=== PATIENT | female | born 1930 | race Caucasian/White ===

== ENCOUNTER 2017-06-22 13:24 | Inpatient (IN) | payer MEDICARE ==
[~2017-06-22] VITALS: Ht 144.8 cm; Wt 60.8 kg
[~2017-06-22 13:24] MED LIST: ASPI81 PO; ATEN-100 PO; CALC600T34 PO; CIPR500T4 PO; COZA100T PO; GABA300C3 PO; HYDR12.56 PO; LEVO50TA51 PO; OMEG100037 PO; OMEP20TA PO; ROSU5 PO; TAB-TAB PO; VITA100017 PO; ZOLE5P IV; [UNRECOGNIZED DRUG - CODE] IV; [UNRECOGNIZED DRUG - CODE] PO
[2017-06-22 13:29] VITALS: BP 158/69; PULSE 77; RESP 14; TEMP 97.8; O2SAT 95
[2017-06-22 13:40] VITALS: BP 136/92; PULSE 65; RESP 15; TEMP 98.7; O2SAT 97
[2017-06-22] MEDS ORDERED: ASCO500T PO (13:56)
[2017-06-22] MEDS ORDERED: TRAS150V (13:56)
[2017-06-22] MEDS ORDERED: OMEP20TA93 PO (13:59)
[2017-06-22] MEDS ORDERED: LEVO50TA4 PO (13:59)
[2017-06-22] MEDS ORDERED: LOSA100T PO (13:59)
[2017-06-22] MEDS ORDERED: CALC1TAB87 PO (13:59)
[2017-06-22] MEDS ORDERED: ROSU1TAB4 PO (13:59)
[2017-06-22] MEDS ORDERED: ATEN25TA PO (13:59)
[2017-06-22] MEDS ORDERED: MULTTAB67 PO (13:59)
[2017-06-22] MEDS ORDERED: GABA300C5 PO (13:59)
[2017-06-22] MEDS ORDERED: SODIUM CHLOR 0.9% 1000 ML INJ 1,000 ML IV ONE (14:00)
--- NOTE | 2017-06-22 14:00 | PD ---
HPI Chief Complaint: Skin Problem Time Seen by Provider: 13:37 Travel History International Travel<30 days: No Contact w/Intl Traveler<30days: No Traveled to known affect area: No History of Present Illness HPI 86-year-old female that presents to the ED for evaluation of left arm swelling and possible kidney failure. Patient reports that she is a cancer patient secondary to left breast cancer which she is receiving chemotherapy every 2 weeks. She follows with Dr. Majano for this and has been evaluated for the swelling to the left arm and breast that she recently developed since Sunday. Dr. Majano started her on Keflex and ceftriaxone IV in his office but the swelling and the redness has not improved. He also did some blood work that showed the patient had acute kidney injury. Patient was seen again today and had blood work that showed worsening kidney injury as well as elevated level psych count. Dr. Majano wanted the patient to come to the hospital to be admitted to general medicine have a consult to renal specialist. Patient states that her pain is minimal and is 3 out of 10. She has not had any imaging of the left arm. She's never had anything like this before. She denies taking any blood thinners. She does have a history of diabetes but was told to stop her metformin secondary to the acute kidney injury. She states compliance with antibiotic. She has no allergies to medication. No other medical issues. 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 , ARTHRITIS ) Neurologic: No Psychiatric: No Reproductive: No Respiratory: No Thyroid Disease: Yes (HYPO) : 4 Para: 4 Miscarriage: 0 : 0 Dilation and Curettage (D&C): Yes Past Surgical History Abdominal Surgery: Yes (appendectomy) Appendectomy: Yes Cardiac Surgery: No Ear Surgery: No Endocrine Surgery: No Eye Surgery: Yes (BILAT CATARACT) Genitourinary Surgery: No Gynecologic Surgery: No Joint Replacement: Yes (RIGHT HIP ) Neurologic Surgery: Yes (L2,3,5) Oral Surgery: Yes (tonsillectomy) Pacemaker: No Thoracic Surgery: No Tonsillectomy: Yes Other Surgery: Yes Social History Alcohol Use: No Tobacco Use: No Substance Use: No Allergies-Medications (Allergen,Severity, Reaction): Coded Allergies: No Known Allergies (Verified Allergy, Unknown, 06/22/17) Reported Meds & Prescriptions Reported Meds & Active Scripts Active Reported Rosuvastatin (Rosuvastatin Calcium) 5 Mg Tab 5 Mg PO HS Omeprazole 20 Mg Tab 20 Mg PO DAILY Multiple Vitamin 1 Tab 1 Tab PO DAILY Losartan (Losartan Potassium) 100 Mg Tab 200 Mg PO DAILY Levothyroxine (Levothyroxine Sodium) 50 Mcg Tab 50 Mcg PO DAILY Gabapentin 300 Mg Cap 300 Mg PO HS Calcium 600 with Vitamin D (Calcium Carbonate-Cholecalciferol) 600-400 mg-Unit Tab 1 Tab PO BID Atenolol 25 Mg Tab 25 Mg PO BID Ascorbic Acid 500 Mg Tab 600 Mg PO Herceptin (Trastuzumab) 150 Mg Vial Review of Systems Except as stated in HPI: all other systems reviewed are Neg Physical Exam Narrative GENERAL: SKIN: Warm and dry. HEAD: Atraumatic. Normocephalic. EYES: Pupils equal and round. No scleral icterus. No injection or drainage. ENT: No nasal bleeding or discharge. Mucous membranes pink and moist. Tongue is midline. No uvula deviation. NECK: Trachea midline. No JVD. CARDIOVASCULAR: Regular rate and rhythm. No murmurs, S3, S4. RESPIRATORY: No accessory muscle use. Clear to auscultation. Breath sounds equal bilaterally. GASTROINTESTINAL: Abdomen soft, non-tender, nondistended. Hepatic and splenic margins not palpable. MUSCULOSKELETAL: Extremities without clubbing, cyanosis, or edema. No obvious deformities. Full range of motion of the upper and lower extremities bilaterally. Patient does have erythema and swelling noted on the left medial bicep and elbow. Also noted on the left breast. Done with female nurse present. No wrist tenderness or mass noted. 2+ pulses bilaterally. No obvious lymphadenopathy noted. NEUROLOGICAL: Awake and alert. No obvious cranial nerve deficits. Motor grossly within normal limits. Five out of 5 muscle strength in the arms and legs. Normal speech. PSYCHIATRIC: Appropriate mood and affect; insight and judgment normal. Data Data Last Documented VS Vital Signs Date Time Temp Pulse Resp B/P (MAP) Pulse Ox O2 Delivery O2 Flow Rate FiO2 06/22/17 13:40 98.7 65 15 136/92 (107) 97 Room Air Orders Orders Complete Blood Count With Diff (06/22/17 13:45) Prothrombin Time / Inr (Pt) (06/22/17 13:45) Act Partial Throm Time (Ptt) (06/22/17 13:45) Urinalysis - C+S If Indicated (06/22/17 13:45) Magnesium (Mg) (06/22/17 13:45) Iv Access Insert/Monitor (06/22/17 13:45) Ecg Monitoring (06/22/17 13:45) Us Arm Venous Doppler (06/22/17 ) Lactic Acid Sepsis Protocol (06/22/17 13:46) Sodium Chlor 0.9% 1000 Ml Inj (Ns 1000 M (06/22/17 14:00) Chest, Single Ap (06/22/17 ) Vancomycin Inj (Vancomycin Inj) (06/22/17 15:00) Admit To Inpatient (06/22/17 ) Code Status (06/22/17 14:51) Vital Signs (Adult) Q4H (06/22/17 14:51) Activity Oob With Assistance (06/22/17 14:51) Diet Heart Healthy (06/22/17 Dinner) Sodium Chloride 0.9% Flush (Ns Flush) (06/22/17 15:00) Sodium Chloride 0.9% Flush (Ns Flush) (06/22/17 21:00) Acetaminophen (Tylenol) (06/22/17 15:00) Ondansetron Inj (Zofran Inj) (06/22/17 15:00) Basic Metabolic Panel (Bmp) (06/23/17 06:00) Complete Blood Count With Diff (06/23/17 06:00) Electrocardiogram (06/22/17 14:51) Pt Request For Service (06/22/17 14:51) Scd Bilateral/Knee High SELAM.BID (06/22/17 14:51) Naloxone Inj (Narcan Inj) (06/22/17 15:00) Magnesium Hydroxide Liq (Milk Of Magnesi (06/22/17 15:00) Inpatient Certification (06/22/17 ) Ns + Kcl 20 Meq Inj (Ns + Kcl 20 Meq Inj (06/22/17 15:00) Us Kidney/Renal/Bladder (06/22/17 ) Atenolol (Tenormin) (06/22/17 21:00) Gabapentin (Neurontin) (06/22/17 21:00) Levothyroxine (Synthroid) (06/23/17 06:00) Losartan (Cozaar) (06/23/17 09:00) Pantoprazole (Protonix) (06/23/17 09:00) Atorvastatin (Lipitor) (06/22/17 21:00) Admit Order (Ed Use Only) (06/22/17 15:09) Consult Nephrology (06/22/17 15:08) Labs Laboratory Tests Test 06/22/17 14:08 White Blood Count 9.7 TH/MM3 Red Blood Count 3.27 MIL/MM3 Hemoglobin 10.5 GM/DL Hematocrit 31.7 % Mean Corpuscular Volume 96.9 FL Mean Corpuscular Hemoglobin 32.1 PG Mean Corpuscular Hemoglobin Concent 33.1 % Red Cell Distribution Width 14.1 % Platelet Count 169 TH/MM3 Mean Platelet Volume 7.4 FL Neutrophils (%) (Auto) 53.4 % Lymphocytes (%) (Auto) 37.0 % Monocytes (%) (Auto) 7.5 % Eosinophils (%) (Auto) 1.8 % Basophils (%) (Auto) 0.3 % Neutrophils # (Auto) 5.2 TH/MM3 Lymphocytes # (Auto) 3.6 TH/MM3 Monocytes # (Auto) 0.7 TH/MM3 Eosinophils # (Auto) 0.2 TH/MM3 Basophils # (Auto) 0.0 TH/MM3 CBC Comment DIFF FINAL Differential Comment Prothrombin Time 9.5 SEC Prothromb Time International Ratio 0.9 RATIO Activated Partial Thromboplast Time 42.0 SEC Urine Color LIGHT-YELLOW Urine Turbidity CLEAR Urine pH 6.0 Urine Specific [place] 1.004 Urine Protein 30 mg/dL Urine Glucose (UA) NEG mg/dL Urine Ketones NEG mg/dL Urine Occult Blood SMALL Urine Nitrite NEG Urine Bilirubin NEG Urine Urobilinogen LESS THAN 2.0 MG/DL Urine Leukocyte Esterase NEG Urine RBC 1 /hpf Urine WBC 1 /hpf Urine Squamous Epithelial Cells <1 /hpf Urine Bacteria OCC /hpf Urine Mucus FEW /lpf Microscopic Urinalysis Comment CULT NOT INDICATED Lactic Acid Level 0.5 mmol/L Magnesium Level 2.2 MG/DL MDM Medical Decision Making Medical Screen Exam Complete: Yes Emergency Medical Condition: Yes Medical Record Reviewed: Yes Interpretation(s) CBC Diagram 06/22/17 14:08 coags WNL UA negative Last Impressions Upper Extremity Ultrasound 06/22/17 0000 Signed Impressions: Service Date/Time: Sunday, June 22, 2017 14:14 - CONCLUSION: Negative for DVT. Simon Zamora MD FACR Differential Diagnosis Cellulitis versus kidney failure versus acute on chronic kidney disease versus diabetes versus DVT versus cancer patient Narrative Course 86-year-old female that presents to the ED for evaluation of left leg swelling and erythema as well as kidney failure. I reviewed the lab work from patient and she did have a significant increase in her creatinine and BUN and in less than 24 hours. Her creatinine went from 3-4 and her BUN went from 40-50. On april patient had normal kidney function per our records. Patient was sent here for by Dr. Majano for admission. This time labs were done more specifically for CBC as well as ultrasound and chest x-ray to rule out any sign of pneumonia or DVT. Lactic acid was ordered as well. Patient was given IV fluids. At this time unclear as to the reason of the erythema. Could be infectious or who be DVT. We'll hold on antibiotics and ultrasound comes back. She at this time does not appear to be septic at this time. Ultrasound negative for DVT. Patient was started on vancomycin after speaking my attending Dr. Romo. He agrees to admission. Family agrees with this. [facility] doctor was contacted and Dr Hercules agrees to admission. Diagnosis Primary Impression: Acute kidney injury Additional Impressions: Cellulitis Qualified Codes: L03.114 - Cellulitis of left upper limb Breast CA Qualified Codes: C50.912 - Malignant neoplasm of unspecified site of left female breast Admitting Information Admitting Physician Requests: Admit Jules Martinez Jun 22, 2017 14:00
[2017-06-22 14:28] LABS: AUTOMATED NEUTROPHIL # 5.2 TH/MM3 (1.8-7.7); BASOPHIL % 0.3 % (0.0-2.0); EOSINOPHIL # 0.2 TH/MM3 (0-0.4); EOSINOPHIL % 1.8 % (0.0-4.0); HEMATOCRIT 31.7 % (35.0-46.0); HEMO FLAGS DIFF FINAL; LYMPHOCYTE # 3.6 TH/MM3 (1.0-4.8); MEAN CELL VOLUME 96.9 FL (80.0-100.0); MEAN CORPUSCULAR HEMOGLOBIN 32.1 PG (27.0-34.0); MEAN CORPUSCULAR HGB CONC 33.1 % (32.0-36.0); MONO % 7.5 % (0.0-8.0); NEUT % 53.4 % (16.0-70.0); PLATELET COUNT 169 TH/MM3 (150-450); RED BLOOD COUNT 3.27 MIL/MM3 (4.00-5.30); RED CELL DISTRIBUTION WIDTH 14.1 % (11.6-17.2); WHITE BLOOD COUNT 9.7 TH/MM3 (4.0-11.0)
[2017-06-22 14:30] LABS: BACTERIA, URINE OCC /hpf; BLOOD, URINE SMALL (NEG); COMMENT (UR) CULT NOT INDICATED; CULTURE IF INDICATED CULT NOT INDICATED; GLUCOSE,URINE NEG (NEG); KETONE, URINE NEG (NEG); MUCUS URINE FEW /lpf (OCC); NITRITE,URINE NEG (NEG); SQUAMOUS EPITHELIAL CELL URINE <1 /hpf (0-5); URINE COLOR LIGHT-YELLOW (YELLW/STRAW)
--- NOTE | 2017-06-22 14:37 | RADRPT ---
EXAM DATE/TIME: 06/22/2017 14:14 [facility] COMPARISON: No previous studies available for comparison. INDICATIONS : Left arm swelling. MEDICAL HISTORY : Gastroesophageal reflux disease. Hypertension. Hypothyroidism. Diabetes. Hyperlipidemia. Herniated di sc. Breast cancer. SURGICAL HISTORY : Tonsillectomy. Appendectomy. Bilateral cataracts. D&C. Right hip replacement. Neurologic surgery. ENCOUNTER: Initial ACUITY: 4 - 6 days PAIN SCORE: 0/10 LOCATION: Left arm. FINDINGS: There is spontaneous flow documented in the brachial, basilic, cephalic, axillary, and subclavian vei ns. The vessels are compressible and augmentation response is documented. No filling defects are se en. The flow is phasic with respiration. Direction of flow in the jugular vein is caudal. CONCLUSION: Negative for DVT. Simon Zamora MD FACR on June 22, 2017 at 14:35 Board Certified Radiologist. This report was verified electronically.
[2017-06-22 14:38] LABS: INTERNATIONAL NORMALIZED RATIO 0.9 RATIO; PROTHROMBIN TIME - PATIENT 9.5 SEC (9.8-11.6)
[2017-06-22] MEDS ORDERED: ACETAMINOPHEN 325 MG TAB PO PRN (15:00)
[2017-06-22] MEDS ORDERED: NALOXONE HCL 0.4 MG/ML AMP IV PUSH PRN (15:00)
[2017-06-22] MEDS ORDERED: ONDANSETRON HCL 4 MG/2 ML VIAL IVP PRN (15:00)
[2017-06-22] MEDS ORDERED: NS + KCL 20 MEQ INJ 1,000 ML IV SCH (15:00)
[2017-06-22] MEDS ORDERED: VANCOMYCIN INJ 1,000 MG in SODIUM CHLOR 0.9% 250 ML INJ 250 ML IV ONE (15:00)
[2017-06-22] MEDS ORDERED: MAGNESIUM HYDROXIDE SUSP 30 ML CUP PO PRN (15:00)
--- NOTE | 2017-06-22 15:24 | HHI.HP ---
HPI Service [facility] Primary Care Physician Gustabo Starr M.D. Admission Diagnosis Chief Complaint: Left arm swelling and abnormal labs sent ny Dr. Majano Travel History International Travel<30 Days: No Contact w/Intl Traveler <30 Da: No Traveled to Known Affected Are: No History of Present Illness This is an 86-year-old female patient with past medical history which includes left breast cancer currently undergoing chemotherapy with Dr. Majano, diabetes mellitus, pulmonary hypertension, chronic kidney disease, diverticulosis, GERD, hyperlipidemia, hyperthyroidism, lumbar radiculopathy, osteoporosis and peripheral neuropathy secondary to chemotherapy. On Sunday she developed a fever, Tmax 103.2 F, noticed erythema to left breast that extended down her left arm with edema. Patient endorses minimal oral intake and Sun. Yesterday she saw her PCP who kayleigh labs and referred her to ER for renal failure. Her creatinine was 3.03 yesterday, and increased to 4.04 today. She has been making a good amount of urine. Patient was seen by her oncologist Dr. Majano for complained of left arm edema lab values were checked and patient was found to have elevated renal function. Patient evaluated with daughter and at bedside. Patient reports she is feeling better and the erythema to left arm and breast area has improved greatly after she received Rocephin at Dr. Majano's office. Patient denies chest pain or shortness of breath. Past Family Social History Past Medical History left breast cancer currently undergoing chemotherapy with Dr. Majano, diabetes mellitus, pulmonary hypertension, chronic kidney disease, diverticulosis, GERD, hyperlipidemia, hyperthyroidism, lumbar radiculopathy, osteoporosis and peripheral neuropathy secondary to chemotherapy. Past Surgical History Appendectomy, colonoscopy, cataract surgery, excision of tendon cyst on hand, paravertebral nerve block, spinal microdissection, tonsillectomy, total abdominal hysterectomy, total hip replacement Reported Medications Rosuvastatin (Rosuvastatin Calcium) 5 Mg Tab 5 Mg PO HS Omeprazole 20 Mg Tab 20 Mg PO DAILY Multiple Vitamin 1 Tab 1 Tab PO DAILY Losartan (Losartan Potassium) 100 Mg Tab 200 Mg PO DAILY Levothyroxine (Levothyroxine Sodium) 50 Mcg Tab 50 Mcg PO DAILY Gabapentin 300 Mg Cap 300 Mg PO HS Calcium 600 with Vitamin D (Calcium Carbonate-Cholecalciferol) 600-400 mg-Unit Tab 1 Tab PO BID Atenolol 25 Mg Tab 25 Mg PO BID Ascorbic Acid 500 Mg Tab 600 Mg PO Herceptin (Trastuzumab) 150 Mg Vial Allergies: Coded Allergies: No Known Allergies (Verified Allergy, Unknown, 06/22/17) Active Ordered Medications Current Medications Medications (Trade) Dose Ordered Sig/Calvin Route Start Time Stop Time Status Last Admin Sodium Chloride 1,000 ml @ 999 mls/hr BOLUS ONCE IV 06/22/17 14:00 06/22/17 15:00 06/22/17 14:16 Vancomycin HCl 1000 mg/Sodium Chloride 250 ml @ 250 mls/hr ONCE ONCE IV 06/22/17 15:00 06/22/17 15:59 (NS Flush) 2 ml UNSCH PRN IV FLUSH 06/22/17 15:00 (NS Flush) 2 ml BID IV FLUSH 06/22/17 21:00 (Tylenol) 650 mg Q4H PRN PO 06/22/17 15:00 (Zofran Inj) 4 mg Q6H PRN IVP 06/22/17 15:00 (Narcan Inj) 0.4 mg UNSCH PRN IV PUSH 06/22/17 15:00 (Milk Of Magnbrittany Liq) 30 ml Q12H PRN PO 06/22/17 15:00 Potassium Chloride/Sodium Chloride 1,000 ml @ 85 mls/hr [id number] IV 06/22/17 15:00 UNV Family History Family history includes brain cancer, lung cancer, myocardial infarction, cardiomegaly and osteoarthritis Social History Patient is reports rare EtOH use and denies tobacco use or illicit drug use Physical Exam Vital Signs Vital Signs Date Time Temp Pulse Resp B/P (MAP) Pulse Ox O2 Delivery O2 Flow Rate FiO2 06/22/17 13:40 98.7 65 15 136/92 (107) 97 Room Air 06/22/17 13:29 97.8 77 14 158/69 (98) 95 Physical Exam GENERAL: This is a well-nourished, well-developed patient, in no apparent distress. SKIN: erythema and edema left upper extremity HEAD: Atraumatic. Normocephalic. No temporal or scalp tenderness. EYES: Extraocular motions intact. No scleral icterus. No injection or drainage. CARDIOVASCULAR: Regular rate and rhythm RESPIRATORY: Clear to auscultation. Breath sounds equal bilaterally. GASTROINTESTINAL: Abdomen soft, non-tender, nondistended. MUSCULOSKELETAL: Extremities without clubbing, cyanosis, or edema. No joint tenderness, effusion, or edema noted. No calf tenderness. Negative Homans sign bilaterally. NEUROLOGICAL: Awake and alert. No focal deficits. Motor and sensory grossly within normal limits. Five out of 5 muscle strength in all muscle groups. Normal speech. Laboratory Laboratory Tests Test 06/22/17 14:08 White Blood Count 9.7 Red Blood Count 3.27 Hemoglobin 10.5 Hematocrit 31.7 Mean Corpuscular Volume 96.9 Mean Corpuscular Hemoglobin 32.1 Mean Corpuscular Hemoglobin Concent 33.1 Red Cell Distribution Width 14.1 Platelet Count 169 Mean Platelet Volume 7.4 Neutrophils (%) (Auto) 53.4 Lymphocytes (%) (Auto) 37.0 Monocytes (%) (Auto) 7.5 Eosinophils (%) (Auto) 1.8 Basophils (%) (Auto) 0.3 Neutrophils # (Auto) 5.2 Lymphocytes # (Auto) 3.6 Monocytes # (Auto) 0.7 Eosinophils # (Auto) 0.2 Basophils # (Auto) 0.0 CBC Comment DIFF FINAL Differential Comment Prothrombin Time 9.5 Prothromb Time International Ratio 0.9 Activated Partial Thromboplast Time 42.0 Urine Color LIGHT-YELLOW Urine Turbidity CLEAR Urine pH 6.0 Urine Specific [place] 1.004 Urine Protein 30 Urine Glucose (UA) NEG Urine Ketones NEG Urine Occult Blood SMALL Urine Nitrite NEG Urine Bilirubin NEG Urine Urobilinogen LESS THAN 2.0 Urine Leukocyte Esterase NEG Urine RBC 1 Urine WBC 1 Urine Squamous Epithelial Cells <1 Urine Bacteria OCC Urine Mucus FEW Microscopic Urinalysis Comment CULT NOT INDICATED Lactic Acid Level 0.5 Magnesium Level 2.2 Result Diagram: 06/22/17 1408 Imaging Last Impressions Upper Extremity Ultrasound 06/22/17 0000 Signed Impressions: Service Date/Time: Thursday, June 22, 2017 14:14 - CONCLUSION: Negative for DVT. Simon Zamora MD FACR Renal Ultrasound 06/22/17 0000 Signed Impressions: Service Date/Time: Thursday, June 22, 2017 15:05 - CONCLUSION: 1. Echogenic kidneys consistent with medical renal disease. 2. No obstructive uropathy. Jordan Grey MD Chest X-Ray 06/22/17 0000 Signed Impressions: Service Date/Time: Thursday, June 22, 2017 16:45 - CONCLUSION: Negative for an acute process. Simon Zamora MD FACR Caprini VTE Risk Assessment Caprini VTE Risk Assessment: Mod/High Risk (score >= 2) Caprini Risk Assessment Model Point Value = 1 Point Value = 2 Point Value = 3 Point Value = 5 Age 41-60 Minor surgery BMI > 25 kg/m2 Swollen legs Varicose veins or History of unexplained or recurrent spontaneous Oral contraceptives or hormone replacement Sepsis (< 1 month) Serious lung disease, including pneumonia (< 1 month) Abnormal pulmonary function Acute myocardial infarction Congestive heart failure (< 1 month) History of inflammatory bowel disease Medical patient at bed rest Age 61-74 Arthroscopic surgery Major open surgery (> 45 min) Laparoscopic surgery (> 45 min) Malignancy Confined to bed (> 72 hours) Immobilizing plaster cast Central venous access Age >= 75 History of VTE Family history of VTE Factor V Leiden Prothrombin [id number] Lupus anticoagulant Anticardiolipin antibodies Elevated serum homocysteine Heparin-induced thrombocytopenia Other congenital or acquired thrombophilia Stroke (< 1 month) Elective arthroplasty Hip, pelvis, or leg fracture Acute spinal cord injury (< 1 month) Prophylaxis Regimen Total Risk Factor Score Risk Level Prophylaxis Regimen 0-1 Low Early ambulation 2 Moderate Order ONE of the following: *Sequential Compression Device (SCD) *Heparin 5000 units SQ BID 3-4 Higher Order ONE of the following medications: *Heparin 5000 units SQ TID *Enoxaparin/Lovenox 40 mg SQ daily (WT < 150 kg, CrCl > 30 mL/min) *Enoxaparin/Lovenox 30 mg SQ daily (WT < 150 kg, CrCl > 10-29 mL/min) *Enoxaparin/Lovenox 30 mg SQ BID (WT < 150 kg, CrCl > 30 mL/min) AND/OR *Sequential Compression Device (SCD) 5 or more Highest Order ONE of the following medications: *Heparin 5000 units SQ TID (Preferred with Epidurals) *Enoxaparin/Lovenox 40 mg SQ daily (WT < 150 kg, CrCl > 30 mL/min) *Enoxaparin/Lovenox 30 mg SQ daily (WT < 150 kg, CrCl > 10-29 mL/min) *Enoxaparin/Lovenox 30 mg SQ BID (WT < 150 kg, CrCl > 30 mL/min) AND *Sequential Compression Device (SCD) Assessment and Plan Problem List: (1) Acute kidney injury ICD Codes: N17.9 - Acute kidney failure, unspecified Status: Acute Plan: Acute kidney injury patient's baseline creatinine 1.0 on admission BUN 55, creatinine 4.17 and GFR 10 Start IVF renal US ordered consult nephrology repeat labs in AM Left Upper extremity cellulitis US negative for DVT Patient has received Rocephin outpatient with improvement will continue Rocephin ER ordered vancomycin due to concern for cellulitis cancelled order for vancomycin Neuropathy secondary to chemotherapy Continue patient's Gabapentin Hypothyroidism continue patient's home Synthroid 50mcg daily Hyperlipidemia continue patient's home statin Hypertension Hold patient's losartan secondary to acute kidney injury Continue home atenolol 25 mg PO BID Monitor blood pressure trend GERD continue patient's home Protonix PT consulted DVT prophylaxis with SCDs (2) Cellulitis ICD Codes: L03.90 - Cellulitis, unspecified Status: Acute (3) Peripheral neuropathy due to chemotherapy ICD Codes: G62.0 - Drug-induced polyneuropathy; T45.1X5A - Adverse effect of antineoplastic and immunosuppressive drugs, initial encounter (4) Hypothyroidism ICD Codes: E03.9 - Hypothyroidism, unspecified (5) Hyperlipidemia ICD Codes: E78.5 - Hyperlipidemia, unspecified (6) GERD (gastroesophageal reflux disease) ICD Codes: K21.9 - Gastro-esophageal reflux disease without esophagitis Assessment and Plan Patient examined. Assessment and plan formulated with Annette Sebastian PA-C. I agree with the above. Physician Certification 2 Midnight Certification Type: Admission for Inpatient Services Order for Inpatient Services The services are ordered in accordance with Medicare regulations or non- Medicare payer requirements, as applicable. In the case of services not specified as inpatient-only, they are appropriately provided as inpatient services in accordance with the 2-midnight benchmark. Estimated LOS (days): 3 days is the estimated time the patient will need to remain in the hospital, assuming treatment plan goals are met and no additional complications. Post-Hospital Plan: Home Problem Qualifiers (1) Cellulitis: Qualified Codes: L03.114 - Cellulitis of left upper limb Annette Sebastian Jun 22, 2017 15:24 Ming Hercules DO Jun 24, 2017 09:51
--- NOTE | 2017-06-22 15:27 | RADRPT ---
EXAM DATE/TIME: 06/22/2017 15:05 [facility] COMPARISON: No previous studies available for comparison. INDICATIONS : Incresed BUN and creatinine. MEDICAL HISTORY : Gastroesophageal reflux disease. Hypertension. Thyroid disease. Hyperlipdemia. Breast cancer. SURGICAL HISTORY : Tonsillectomy. Appendectomy. Rip hip replacement. Back surgery. D&C. ENCOUNTER: Initial ACUITY: 1 day PAIN SCORE: 2/10 LOCATION: Bilateral flank MEASUREMENTS: RIGHT KIDNEY: 10.1 x 4.1 x 4.3 cm LEFT KIDNEY: 9.8 x 3.3 x 4.5 cm FINDINGS: RIGHT KIDNEY: Renal cortex is normal in thickness but increased in echotexture. No hydronephrosis, stone, or mass. LEFT KIDNEY: Renal cortex is normal in thickness a but increased in echotexture. No hydronephrosis, stone, or mas s. BLADDER: Within normal limits given the degree of distension. CONCLUSION: 1. Echogenic kidneys consistent with medical renal disease. 2. No obstructive uropathy. Jordan Grey MD on June 22, 2017 at 15:25 Board Certified Radiologist. This report was verified electronically.
--- NOTE | 2017-06-22 16:19 | PD.CONS ---
HPI Service Nephrology Consult Requested By Reason for Consult Acute renal failure Primary Care Physician Gustabo Starr M.D. History of Present Illness This is a very pleasant 86 y/o female. She has normal renal function at baseline. She has been under the care of Dr. 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 She was doing well, had treatment last Sunday. On Sunday she developed a fever, Tmax 103.2 F, noticed erythema to left breast that extended down her left arm with edema. She was down most of the day, with minimal oral intake and Sun. Yesterday she saw her PCP who kayleigh labs and referred her to ER for renal failure. Her creatinine was 3.03 yesterday, and increased to 4.04 today. She has been making a good amount of urine. She was told to stop the Metformin, has not taken Celebrex for several weeks. She denies any new medications, herbs, or procedures. We were consulted to assist. (Lizeth Woods) Review of Systems Constitutional: COMPLAINS OF: Fatigue, Fever Respiratory: DENIES: Shortness of breath Cardiovascular: DENIES: Chest pain, Lower Extremity Edema Gastrointestinal: DENIES: Abdominal pain (Lizeth Woods) Past Family Social History Allergies: Coded Allergies: No Known Allergies (Verified Allergy, Unknown, 06/22/17) Past Medical History L inflamatory breast CA, currently undergoing chemotherapy with Dr. Majano diabetes mellitus pulmonary hypertension diverticulosis GERD hyperlipidemia hyperthyroidism lumbar radiculopathy osteoporosis and peripheral neuropathy secondary to chemotherapy. Past Surgical History Appendectomy colonoscopy cataract surgery excision of tendon cyst on hand paravertebral nerve block spinal microdissection tonsillectomy total abdominal hysterectomy total hip replacement Reported Medications Rosuvastatin (Rosuvastatin Calcium) 5 Mg Tab 5 Mg PO HS Omeprazole 20 Mg Tab 20 Mg PO DAILY Multiple Vitamin 1 Tab 1 Tab PO DAILY Losartan (Losartan Potassium) 100 Mg Tab 200 Mg PO DAILY Levothyroxine (Levothyroxine Sodium) 50 Mcg Tab 50 Mcg PO DAILY Gabapentin 300 Mg Cap 300 Mg PO HS Calcium 600 with Vitamin D (Calcium Carbonate-Cholecalciferol) 600-400 mg-Unit Tab 1 Tab PO BID Atenolol 25 Mg Tab 25 Mg PO BID Ascorbic Acid 500 Mg Tab 600 Mg PO Herceptin (Trastuzumab) 150 Mg Vial Metformin 500 mg daily Active Ordered Medications Current Medications Medications (Trade) Dose Ordered Sig/Calvin Route Start Time Stop Time Status Last Admin (NS Flush) 2 ml UNSCH PRN IV FLUSH 06/22/17 15:00 (NS Flush) 2 ml BID IV FLUSH 06/22/17 21:00 (Tylenol) 650 mg Q4H PRN PO 06/22/17 15:00 (Zofran Inj) 4 mg Q6H PRN IVP 06/22/17 15:00 (Narcan Inj) 0.4 mg UNSCH PRN IV PUSH 06/22/17 15:00 (Milk Of Magnbrittany Liq) 30 ml Q12H PRN PO 06/22/17 15:00 Potassium Chloride/Sodium Chloride 1,000 ml @ 85 mls/hr [id number] IV 06/22/17 15:00 06/22/17 15:50 (Tenormin) 25 mg BID PO 06/22/17 21:00 (Neurontin) 300 mg HS PO 06/22/17 21:00 (Synthroid) 50 mcg DAILY@0600 PO 06/23/17 06:00 (Cozaar) 200 mg DAILY PO 06/23/17 09:00 (Protonix) 20 mg DAILY PO 06/23/17 09:00 (Lipitor) 10 mg HS PO 06/22/17 21:00 Family History No hx of renal disorders 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 smoking hx ambulatory full code (Lizeth Woods) Physical Exam Vital Signs Vital Signs Date Time Temp Pulse Resp B/P (MAP) Pulse Ox O2 Delivery O2 Flow Rate FiO2 06/22/17 13:40 98.7 65 15 136/92 (107) 97 Room Air 06/22/17 13:29 97.8 77 14 158/69 (98) 95 Physical Exam Elderly female, awake and alert Port right chest S1/S2, RRR no murmurs Abd soft, non tender Ext without edema (lower), she does have edema to left arm, non pitting Distal pulses intact Laboratory Laboratory Tests Test 06/22/17 14:08 White Blood Count 9.7 Red Blood Count 3.27 Hemoglobin 10.5 Hematocrit 31.7 Mean Corpuscular Volume 96.9 Mean Corpuscular Hemoglobin 32.1 Mean Corpuscular Hemoglobin Concent 33.1 Red Cell Distribution Width 14.1 Platelet Count 169 Mean Platelet Volume 7.4 Neutrophils (%) (Auto) 53.4 Lymphocytes (%) (Auto) 37.0 Monocytes (%) (Auto) 7.5 Eosinophils (%) (Auto) 1.8 Basophils (%) (Auto) 0.3 Neutrophils # (Auto) 5.2 Lymphocytes # (Auto) 3.6 Monocytes # (Auto) 0.7 Eosinophils # (Auto) 0.2 Basophils # (Auto) 0.0 CBC Comment DIFF FINAL Differential Comment Prothrombin Time 9.5 Prothromb Time International Ratio 0.9 Activated Partial Thromboplast Time 42.0 Urine Color LIGHT-YELLOW Urine Turbidity CLEAR Urine pH 6.0 Urine Specific [place] 1.004 Urine Protein 30 Urine Glucose (UA) NEG Urine Ketones NEG Urine Occult Blood SMALL Urine Nitrite NEG Urine Bilirubin NEG Urine Urobilinogen LESS THAN 2.0 Urine Leukocyte Esterase NEG Urine RBC 1 Urine WBC 1 Urine Squamous Epithelial Cells <1 Urine Bacteria OCC Urine Mucus FEW Microscopic Urinalysis Comment CULT NOT INDICATED Lactic Acid Level 0.5 Magnesium Level 2.2 (Lizeth Woods) Result Diagram: 06/22/17 1408 Imaging Last 72 hours Impressions Upper Extremity Ultrasound 06/22/17 0000 Signed Impressions: Service Date/Time: Thursday, June 22, 2017 14:14 - CONCLUSION: Negative for DVT. Simon Zamora MD FACR Renal Ultrasound 06/22/17 0000 Signed Impressions: Service Date/Time: Thursday, June 22, 2017 15:05 - CONCLUSION: 1. Echogenic kidneys consistent with medical renal disease. 2. No obstructive uropathy. Jordan Grey MD (Lizeth Woods) Assessment and Plan Problem List: (1) Acute kidney injury ICD Codes: N17.9 - Acute kidney failure, unspecified Status: Acute Plan: She has normal renal funciton at baseline Differentials include dehydration and infection/sepsis renal US has been ordered UA not indicating UTI She is on IVF currently, continue for now Avoid nephrotoxic agents Repeat labs in AM (2) Cellulitis ICD Codes: L03.90 - Cellulitis, unspecified Status: Acute Plan: Antibiotic per hospitalist if indicated She is afebrile, the site appears to be resolving (Lizeth Woods) Assessment and Plan patient was seen and examined. Etiology of renal failure is unclear but could be due to sepsis, dehydration along with relatively high dose of Losartan. Agree with stopping Metformin and Losartan. Renal US is negative for hydronephrosis. Continue IVF. Obtain CPK to rule out rhabdomyolysis. Avoid nephrotoxic agents. She appears to be non oliguric. No immediate need for dialysis. (Jose Cabrera MD) Problem Qualifiers (1) Cellulitis: Qualified Codes: L03.114 - Cellulitis of left upper limb Lizeth WoodsP Jun 22, 2017 16:19 Jose Cabrera MD Jun 22, 2017 17:59
[2017-06-22] MEDS ORDERED: cloNIDine HCL 0.2 MG TAB PO PRN (17:00)
--- NOTE | 2017-06-22 17:05 | RADRPT ---
EXAM DATE/TIME: 06/22/2017 16:45 [facility] COMPARISON: CHEST SINGLE AP, January 06, 2016, 19:21. INDICATIONS : Chest pain sudden onset. MEDICAL HISTORY : Carcinoma, breast. Gastroesophageal reflux disease. Hypertension. Thyroid disease. Hyperlipdemi a. SURGICAL HISTORY : Tonsillectomy. Appendectomy. Rip hip replacement. Back surgery. D&C. ENCOUNTER: Initial ACUITY: 1 day PAIN SCORE: 3/10 LOCATION: Bilateral chest FINDINGS: A single view of the chest demonstrates the lungs to be symmetrically aerated without evidence of mas s, infiltrate or effusion. [id number] in good position. The cardiomediastinal contours are unrem arkable. Osseous structures are intact. CONCLUSION: Negative for an acute process. Simon Zamora MD FACR on June 22, 2017 at 17:03 Board Certified Radiologist. This report was verified electronically.
[2017-06-22 17:52] VITALS: BP 176/88; PULSE 80; RESP 18; TEMP 97.9; O2SAT 99
[2017-06-22 20:10] VITALS: BP_SYST 90; BP_SYST 95; BP_DIAS 50; PULSE 67; RESP 18; TEMP 97.6; O2SAT 98
[2017-06-22] MEDS: SODIUM CHLORIDE 0.9% FLUSH 10 ML FLUSH IV FLUSH SCH (20:13)
[2017-06-22] MEDS: ATENOLOL 25 MG TAB PO SCH (20:13)
[2017-06-22] MEDS: SODIUM CHLOR 0.9% 1000 ML INJ 1,000 ML IV SCH (20:13)
[2017-06-22] MEDS: ATORVASTATIN 10 MG TAB PO SCH (20:15)
[2017-06-22] MEDS: GABAPENTIN 300 MG CAP PO SCH (20:15)
[2017-06-22 20:20] VITALS: BP 97/55
[2017-06-22 20:44] VITALS: PULSE 64
[2017-06-23] VITALS (9 sets, daily range): BP systolic 100–157; BP diastolic 55–89; PULSE 60–71; RESP 16–18; TEMP 97–98.2; O2SAT 96–99
[2017-06-23] MEDS: SODIUM CHLOR 0.9% 1000 ML INJ 1,000 ML IV SCH ×2 (05:30→19:57)
[2017-06-23] MEDS: LEVOTHYROXINE SODIUM 50 MCG TAB PO SCH (05:30)
[2017-06-23 05:39] LABS: BICARBONATE 19.8 MEQ/L (21.0-32.0); POTASSIUM 4.9 MEQ/L (3.5-5.1)
[2017-06-23 06:16] LABS: AUTOMATED NEUTROPHIL # 3.3 TH/MM3 (1.8-7.7); BASOPHIL % 0.4 % (0.0-2.0); EOSINOPHIL # 0.2 TH/MM3 (0-0.4); EOSINOPHIL % 2.8 % (0.0-4.0); HEMATOCRIT 26.3 % (35.0-46.0); HEMO FLAGS DIFF FINAL; LYMPH % 39.7 % (9.0-44.0); LYMPHOCYTE # 2.7 TH/MM3 (1.0-4.8); MEAN CELL VOLUME 96.5 FL (80.0-100.0); MEAN CORPUSCULAR HEMOGLOBIN 33.1 PG (27.0-34.0); MEAN CORPUSCULAR HGB CONC 34.3 % (32.0-36.0); MONO % 8.1 % (0.0-8.0); PLATELET COUNT 130 TH/MM3 (150-450); RED BLOOD COUNT 2.72 MIL/MM3 (4.00-5.30); RED CELL DISTRIBUTION WIDTH 14.1 % (11.6-17.2); WHITE BLOOD COUNT 6.7 TH/MM3 (4.0-11.0)
[2017-06-23] MEDS: SODIUM CHLORIDE 0.9% FLUSH 10 ML FLUSH IV FLUSH SCH ×2 (07:55→19:54)
[2017-06-23] MEDS ORDERED: LOSARTAN 50 MG TAB PO SCH (09:00)
[2017-06-23] MEDS: PANTOPRAZOLE SOD 20 MG DELAYED RELEASE TAB PO SCH (09:03)
[2017-06-23] MEDS: ATENOLOL 25 MG TAB PO SCH ×2 (09:03→19:54)
[2017-06-23] MEDS: cefTRIAXone INJ 1,000 MG in SODIUM CHLORIDE 0.9% INJ 100 ML IV SCH (09:03)
--- NOTE | 2017-06-23 11:30 | HHI.PR ---
Subjective Remarks Patient reports feel well offers no complaints at this time Patient is reports good amount of urine output Objective Vitals Vital Signs Date Time Temp Pulse Resp B/P (MAP) Pulse Ox O2 Delivery O2 Flow Rate FiO2 06/23/17 08:57 97.4 66 18 151/89 (109) 99 06/23/17 07:58 60 06/23/17 04:00 97.9 62 16 115/65 (82) 96 06/23/17 00:00 97.7 65 17 100/55 (70) 97 06/22/17 20:44 64 06/22/17 20:20 97/55 (69) 06/22/17 20:10 97.6 67 18 95/50 (65) 98 90/50 (63) 06/22/17 17:52 97.9 80 18 176/88 (117) 99 06/22/17 17:01 06/22/17 13:40 98.7 65 15 136/92 (107) 97 Room Air 06/22/17 13:29 97.8 77 14 158/69 (98) 95 06/23/17 06/23/17 06/24/17 15:00 23:00 07:00 Intake Total 1940 ml Balance 1940 ml Intake Oral 840 ml IV Total 1100 ml Result Diagram: 06/23/17 0415 06/23/17 0415 Other Results Laboratory Tests Test 06/22/17 14:08 06/23/17 04:15 White Blood Count 9.7 TH/MM3 6.7 TH/MM3 Red Blood Count 3.27 MIL/MM3 2.72 MIL/MM3 Hemoglobin 10.5 GM/DL 9.0 GM/DL Hematocrit 31.7 % 26.3 % Mean Corpuscular Volume 96.9 FL 96.5 FL Mean Corpuscular Hemoglobin 32.1 PG 33.1 PG Mean Corpuscular Hemoglobin Concent 33.1 % 34.3 % Red Cell Distribution Width 14.1 % 14.1 % Platelet Count 169 TH/MM3 130 TH/MM3 Mean Platelet Volume 7.4 FL 7.9 FL Neutrophils (%) (Auto) 53.4 % 49.0 % Lymphocytes (%) (Auto) 37.0 % 39.7 % Monocytes (%) (Auto) 7.5 % 8.1 % Eosinophils (%) (Auto) 1.8 % 2.8 % Basophils (%) (Auto) 0.3 % 0.4 % Neutrophils # (Auto) 5.2 TH/MM3 3.3 TH/MM3 Lymphocytes # (Auto) 3.6 TH/MM3 2.7 TH/MM3 Monocytes # (Auto) 0.7 TH/MM3 0.5 TH/MM3 Eosinophils # (Auto) 0.2 TH/MM3 0.2 TH/MM3 Basophils # (Auto) 0.0 TH/MM3 0.0 TH/MM3 CBC Comment DIFF FINAL DIFF FINAL Differential Comment Prothrombin Time 9.5 SEC Prothromb Time International Ratio 0.9 RATIO Activated Partial Thromboplast Time 42.0 SEC Urine Color LIGHT-YELLOW Urine Turbidity CLEAR Urine pH 6.0 Urine Specific [place] 1.004 Urine Protein 30 mg/dL Urine Glucose (UA) NEG mg/dL Urine Ketones NEG mg/dL Urine Occult Blood SMALL Urine Nitrite NEG Urine Bilirubin NEG Urine Urobilinogen LESS THAN 2.0 MG/DL Urine Leukocyte Esterase NEG Urine RBC 1 /hpf Urine WBC 1 /hpf Urine Squamous Epithelial Cells <1 /hpf Urine Bacteria OCC /hpf Urine Mucus FEW /lpf Microscopic Urinalysis Comment CULT NOT INDICATED Lactic Acid Level 0.5 mmol/L Magnesium Level 2.2 MG/DL Total Creatine Kinase 54 U/L Blood Urea Nitrogen 58 MG/DL Creatinine 4.12 MG/DL Random Glucose 108 MG/DL Calcium Level 7.7 MG/DL Sodium Level 138 MEQ/L Potassium Level 4.9 MEQ/L Chloride Level 109 MEQ/L Carbon Dioxide Level 19.8 MEQ/L Anion Gap 9 MEQ/L Estimat Glomerular Filtration Rate 10 ML/MIN Imaging Last Impressions Upper Extremity Ultrasound 06/22/17 0000 Signed Impressions: Service Date/Time: Thursday, June 22, 2017 14:14 - CONCLUSION: Negative for DVT. Simon Zamora MD FACR Renal Ultrasound 06/22/17 0000 Signed Impressions: Service Date/Time: Thursday, June 22, 2017 15:05 - CONCLUSION: 1. Echogenic kidneys consistent with medical renal disease. 2. No obstructive uropathy. Jordan Grey MD Chest X-Ray 06/22/17 0000 Signed Impressions: Service Date/Time: Thursday, June 22, 2017 16:45 - CONCLUSION: Negative for an acute process. Simon Zamora MD FACR Objective Remarks GENERAL: This is a well-nourished, well-developed patient, in no apparent distress. SKIN: mild erythema and edema Left arm decreased from yesterday CARDIOVASCULAR: Regular rate and rhythm RESPIRATORY: Clear to auscultation. Breath sounds equal bilaterally. NEUROLOGICAL: Awake and alert. No focal deficits. Motor and sensory grossly within normal limits. Five out of 5 muscle strength in all muscle groups. Normal speech. A/P Problem List: (1) Acute kidney injury ICD Codes: N17.9 - Acute kidney failure, unspecified Status: Acute Plan: Acute kidney injury patient's baseline creatinine 1.0 on admission BUN 55, creatinine 4.17 and GFR 10 minimal improvement overnight repeat BUN 58, creatine 4.12, GFR 10 add urine eosinophils continue IVF renal US reviewed and reveals echogenic also being followed by nephrology, appreciate assistance repeat labs in AM DVT prophylaxis with SCDs 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 ICD Codes: G62.0 - Drug-induced polyneuropathy; T45.1X5A - Adverse effect of antineoplastic and immunosuppressive drugs, initial encounter Plan: Neuropathy secondary to chemotherapy Continue patient's Gabapentin (4) Hypothyroidism ICD Codes: E03.9 - Hypothyroidism, unspecified Plan: Hypothyroidism continue patient's home Synthroid 50mcg daily (5) Hyperlipidemia ICD Codes: E78.5 - Hyperlipidemia, unspecified Plan: Hyperlipidemia continue patient's home statin (6) GERD (gastroesophageal reflux disease) ICD Codes: K21.9 - Gastro-esophageal reflux disease without esophagitis Plan: GERD continue patient's home Protonix (7) HTN (hypertension) ICD Codes: I10 - Essential (primary) hypertension Plan: Hypertension Hold patient's losartan secondary to acute kidney injury Continue home atenolol 25 mg PO BID Monitor blood pressure trend Assessment and Plan Patient examined. Assessment and plan formulated with Annette Sebastian PA-C. I agree with the above. Problem Qualifiers (1) Cellulitis: Qualified Codes: L03.114 - Cellulitis of left upper limb Annette Sebastian Jun 23, 2017 11:30 Ming Hercules DO Jun 24, 2017 09:52
[2017-06-23] MEDS: LOPERAMIDE HCL 2 MG CAP PO SCH (13:30)
[2017-06-23] MEDS ORDERED: RESP: ALBUTEROL 2.5 MG/IPRATROPIUM 0.5 MG NEB (PRN) NEB (13:30)
--- NOTE | 2017-06-23 14:47 | RADRPT ---
EXAM DATE/TIME: 06/23/2017 14:33 [facility] COMPARISON: CHEST SINGLE AP, June 22, 2017, 16:45. INDICATIONS : Shortness of breath. MEDICAL HISTORY : Carcinoma, breast. Gastroesophageal reflux disease. Hypertension. SURGICAL HISTORY : Tonsillectomy. Appendectomy. Rip hip replacement. Back surgery. Infusaport. ENCOUNTER: Subsequent ACUITY: 2 days PAIN SCORE: 0/10 LOCATION: Bilateral chest FINDINGS: A single view of the chest demonstrates the lungs to be symmetrically aerated with minimal atelectasi s/scarring in the left base. There is some blunting of costophrenic angle and therefore, a small left -sided effusion cannot be excluded. No confluent infiltrate. Heart size is normal. Degenerative osteo phytic changes in the right shoulder. Right shoulder is "high riding" which may indicate chronic rota tor cuff injury. Right subclavian Aiwado-o-Wmfo catheter. There appears to be some pinch off of the catheter in the re gion of the inferior margin of the clavicle. Catheter tubing appears to be intact, however. CONCLUSION: 1. Mild left basilar atelectasis/scarring with possible small left-sided effusion. 2. No confluent infiltrate. 3. Apparent pinch off of the catheter in the right subclavian. Catheter tubing remains intact, harvey srinivasan 4. Degenerative changes in the right shoulder with plain film findings concerning for chronic rotator cuff injury. Leonardo Alarcon MD on June 23, 2017 at 14:42 Board Certified Radiologist. This report was verified electronically.
--- NOTE | 2017-06-23 15:00 | HHI.NPPN ---
Subjective History of Present Illness 86 year old female with inflammatory breast cancer ARF Review of Systems General Constitutional: Fatigue Objective Data Data 06/23/17 06/24/17 19:00 07:00 Intake Total 2180 ml Balance 2180 ml Intake Oral 1080 ml IV Total 1100 ml Vital Signs Date Time Temp Pulse Resp B/P (MAP) Pulse Ox O2 Delivery O2 Flow Rate FiO2 06/23/17 11:37 97.5 71 18 121/69 (86) 98 06/23/17 08:57 97.4 66 18 151/89 (109) 99 06/23/17 07:58 60 06/23/17 04:00 97.9 62 16 115/65 (82) 96 06/23/17 00:00 97.7 65 17 100/55 (70) 97 06/22/17 20:44 64 06/22/17 20:20 97/55 (69) 06/22/17 20:10 97.6 67 18 95/50 (65) 98 90/50 (63) 06/22/17 17:52 97.9 80 18 176/88 (117) 99 06/22/17 17:01 -: 06/23/17 0415 06/23/17 0415 Physical Exam General Appearance: Well Developed Neck Neck Exam: Neck Supple Cardiology CV Exam: Regular Gastrointestinal/Abdomen GI Exam: Non-Tender Extremeties Extremities Exam: No Edema Neurologic Neuro Exam: Alert Assessment/Plan Problem List: (1) Acute kidney injury ICD Codes: N17.9 - Acute kidney failure, unspecified Status: Acute Plan: She has ARFlkely medication induced Taxol induced? Differentials include dehydration and infection/sepsis or medication induced renal US showed echogenic kidney UA not indicating UTI She is on IVF currently, continue for now Avoid nephrotoxic agents Repeat labs in AM (2) Cellulitis ICD Codes: L03.90 - Cellulitis, unspecified Status: Acute Plan: Antibiotic per hospitalist if indicated She is afebrile, the site appears to be resolving Problem Qualifiers (1) Cellulitis: Qualified Codes: L03.114 - Cellulitis of left upper limb Jah Tesfaye MD Jun 23, 2017 15:00
[2017-06-23] MEDS ORDERED: cloNIDine HCL 0.2 MG TAB PO PRN (17:00)
[2017-06-23] MEDS: ATORVASTATIN 10 MG TAB PO SCH (19:53)
[2017-06-23] MEDS: GABAPENTIN 300 MG CAP PO SCH (19:54)
[2017-06-24] VITALS (7 sets, daily range): BP systolic 143–168; BP diastolic 69–98; PULSE 63–75; RESP 16–22; TEMP 97.6–98; O2SAT 96–98
[2017-06-24] MEDS: LEVOTHYROXINE SODIUM 50 MCG TAB PO SCH (05:29)
[2017-06-24 06:23] LABS: BICARBONATE 18.3 MEQ/L (21.0-32.0); POTASSIUM 5.3 MEQ/L (3.5-5.1)
[2017-06-24] MEDS: PANTOPRAZOLE SOD 20 MG DELAYED RELEASE TAB PO SCH (07:47)
[2017-06-24] MEDS: LOPERAMIDE HCL 2 MG CAP PO SCH (07:47)
[2017-06-24] MEDS: ATENOLOL 25 MG TAB PO SCH ×2 (07:47→21:32)
[2017-06-24] MEDS: cefTRIAXone INJ 1,000 MG in SODIUM CHLORIDE 0.9% INJ 100 ML IV SCH (07:47)
[2017-06-24] MEDS: SODIUM CHLORIDE 0.9% FLUSH 10 ML FLUSH IV FLUSH SCH ×2 (07:48→21:39)
[2017-06-24] MEDS ORDERED: SODIUM POLYSTYRENE SULFONATE SUSP 15 GM/60 ML CUP PO ONE (09:30)
--- NOTE | 2017-06-24 10:30 | HHI.PR ---
Subjective Remarks Patient reports she continues to feel well Offers no complaints Objective Vitals Vital Signs Date Time Temp Pulse Resp B/P (MAP) Pulse Ox O2 Delivery O2 Flow Rate FiO2 06/24/17 07:36 97.9 67 18 167/77 (107) 97 06/24/17 05:27 97.9 65 16 143/79 (100) 98 06/23/17 23:52 98.2 68 18 143/72 (95) 98 06/23/17 20:27 67 06/23/17 19:47 98.0 71 18 157/86 (109) 97 Manual Cuff/Auscultation 06/23/17 15:55 97.0 63 18 122/74 (90) 96 06/23/17 11:37 97.5 71 18 121/69 (86) 98 06/24/17 06/24/17 06/25/17 15:00 23:00 07:00 Intake Total 900 ml Balance 900 ml IV Total 900 ml Result Diagram: 06/23/17 0415 06/24/17 0530 Other Results Laboratory Tests Test 06/22/17 14:08 06/23/17 04:15 06/23/17 11:35 06/24/17 05:30 White Blood Count 9.7 TH/MM3 6.7 TH/MM3 Red Blood Count 3.27 MIL/MM3 2.72 MIL/MM3 Hemoglobin 10.5 GM/DL 9.0 GM/DL Hematocrit 31.7 % 26.3 % Mean Corpuscular Volume 96.9 FL 96.5 FL Mean Corpuscular Hemoglobin 32.1 PG 33.1 PG Mean Corpuscular Hemoglobin Concent 33.1 % 34.3 % Red Cell Distribution Width 14.1 % 14.1 % Platelet Count 169 TH/MM3 130 TH/MM3 Mean Platelet Volume 7.4 FL 7.9 FL Neutrophils (%) (Auto) 53.4 % 49.0 % Lymphocytes (%) (Auto) 37.0 % 39.7 % Monocytes (%) (Auto) 7.5 % 8.1 % Eosinophils (%) (Auto) 1.8 % 2.8 % Basophils (%) (Auto) 0.3 % 0.4 % Neutrophils # (Auto) 5.2 TH/MM3 3.3 TH/MM3 Lymphocytes # (Auto) 3.6 TH/MM3 2.7 TH/MM3 Monocytes # (Auto) 0.7 TH/MM3 0.5 TH/MM3 Eosinophils # (Auto) 0.2 TH/MM3 0.2 TH/MM3 Basophils # (Auto) 0.0 TH/MM3 0.0 TH/MM3 CBC Comment DIFF FINAL DIFF FINAL Differential Comment Prothrombin Time 9.5 SEC Prothromb Time International Ratio 0.9 RATIO Activated Partial Thromboplast Time 42.0 SEC Urine Color LIGHT-YELLOW Urine Turbidity CLEAR Urine pH 6.0 Urine Specific [place] 1.004 Urine Protein 30 mg/dL Urine Glucose (UA) NEG mg/dL Urine Ketones NEG mg/dL Urine Occult Blood SMALL Urine Nitrite NEG Urine Bilirubin NEG Urine Urobilinogen LESS THAN 2.0 MG/DL Urine Leukocyte Esterase NEG Urine RBC 1 /hpf Urine WBC 1 /hpf Urine Squamous Epithelial Cells <1 /hpf Urine Bacteria OCC /hpf Urine Mucus FEW /lpf Microscopic Urinalysis Comment CULT NOT INDICATED Lactic Acid Level 0.5 mmol/L Magnesium Level 2.2 MG/DL Total Creatine Kinase 54 U/L Blood Urea Nitrogen 58 MG/DL 63 MG/DL Creatinine 4.12 MG/DL 4.12 MG/DL Random Glucose 108 MG/DL 100 MG/DL Calcium Level 7.7 MG/DL 8.2 MG/DL Sodium Level 138 MEQ/L 143 MEQ/L Potassium Level 4.9 MEQ/L 5.3 MEQ/L Chloride Level 109 MEQ/L 115 MEQ/L Carbon Dioxide Level 19.8 MEQ/L 18.3 MEQ/L Anion Gap 9 MEQ/L 10 MEQ/L Estimat Glomerular Filtration Rate 10 ML/MIN 10 ML/MIN Urine Eosinophils NONE SEEN /HPF Imaging Last Impressions Upper Extremity Ultrasound 06/22/17 0000 Signed Impressions: Service Date/Time: Thursday, June 22, 2017 14:14 - CONCLUSION: Negative for DVT. Simon Zamora MD FACR Renal Ultrasound 06/22/17 0000 Signed Impressions: Service Date/Time: Thursday, June 22, 2017 15:05 - CONCLUSION: 1. Echogenic kidneys consistent with medical renal disease. 2. No obstructive uropathy. Jordan Grey MD Chest X-Ray 06/22/17 0000 Signed Impressions: Service Date/Time: Thursday, June 22, 2017 16:45 - CONCLUSION: Negative for an acute process. Simon Zamora MD FACR Objective Remarks GENERAL: This is a well-nourished, well-developed patient, in no apparent distress. SKIN: mild erythema and edema Left arm continued to improve CARDIOVASCULAR: Regular rate and rhythm RESPIRATORY: Clear to auscultation. Breath sounds equal bilaterally. NEUROLOGICAL: Awake and alert. No focal deficits. Motor and sensory grossly within normal limits. Five out of 5 muscle strength in all muscle groups. Normal speech. A/P Problem List: (1) Acute kidney injury ICD Codes: N17.9 - Acute kidney failure, unspecified Status: Acute Plan: Acute kidney injury patient's baseline creatinine 1.0 on admission BUN 55, creatinine 4.17 and GFR 10 (06/23) creatine 4.12 -> (06/24) 4.12 urine eosinophils negative continue IVF, increase rate renal US reviewed and reveals echogenic kidneys consistent with medical renal disease. No obstructive uropathy also being followed by nephrology, appreciate assistance repeat labs in AM DVT prophylaxis with SCDs 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 ICD Codes: G62.0 - Drug-induced polyneuropathy; T45.1X5A - Adverse effect of antineoplastic and immunosuppressive drugs, initial encounter Status: Chronic Plan: Neuropathy secondary to chemotherapy Continue patient's Gabapentin (4) Hypothyroidism ICD Codes: E03.9 - Hypothyroidism, unspecified Status: Chronic Plan: Hypothyroidism continue patient's home Synthroid 50mcg daily (5) Hyperlipidemia ICD Codes: E78.5 - Hyperlipidemia, unspecified Status: Chronic Plan: Hyperlipidemia continue patient's home statin (6) GERD (gastroesophageal reflux disease) ICD Codes: K21.9 - Gastro-esophageal reflux disease without esophagitis Status: Chronic Plan: GERD continue patient's home Protonix (7) HTN (hypertension) ICD Codes: I10 - Essential (primary) hypertension Status: Chronic Plan: Hypertension Hold patient's losartan secondary to acute kidney injury Continue home atenolol 25 mg PO BID Monitor blood pressure trend (8) Hyperkalemia ICD Codes: E87.5 - Hyperkalemia Status: Acute Plan: potassium (06/24) 5.3 Kayexalate ordered recheck BMP in AM Assessment and Plan Patient examined. Assessment and plan formulated with Annette Sebastian PA-C. I agree with the above. Problem Qualifiers (1) Cellulitis: Qualified Codes: L03.114 - Cellulitis of left upper limb Annette Sebastian Jun 24, 2017 10:30 Ming Hercules DO Jun 25, 2017 22:32
[2017-06-24 11:09] LABS: HEMATOCRIT 31.8 % (35.0-46.0); MEAN CORPUSCULAR HEMOGLOBIN 31.8 PG (27.0-34.0); MEAN CORPUSCULAR HGB CONC 32.8 % (32.0-36.0); PLATELET COUNT 189 TH/MM3 (150-450); RED BLOOD COUNT 3.28 MIL/MM3 (4.00-5.30); RED CELL DISTRIBUTION WIDTH 14.3 % (11.6-17.2); REVIEW FLAG FINAL; WHITE BLOOD COUNT 8.1 TH/MM3 (4.0-11.0)
[2017-06-24] MEDS: SODIUM CHLOR 0.9% 1000 ML INJ 1,000 ML IV SCH ×2 (12:04→20:26)
--- NOTE | 2017-06-24 16:21 | HHI.NPPN ---
Subjective History of Present Illness 86 year old female with inflammatory breast cancer ARF Review of Systems General Constitutional: Fatigue Objective Data Data 06/24/17 06/25/17 19:00 07:00 Intake Total 2620 ml Balance 2620 ml Intake Oral 720 ml IV Total 1900 ml # Voids 4 # Bowel Movements 3 Vital Signs Date Time Temp Pulse Resp B/P (MAP) Pulse Ox O2 Delivery O2 Flow Rate FiO2 06/24/17 11:56 97.6 63 18 156/72 (100) 98 06/24/17 07:36 97.9 67 18 167/77 (107) 97 06/24/17 05:27 97.9 65 16 143/79 (100) 98 06/23/17 23:52 98.2 68 18 143/72 (95) 98 06/23/17 20:27 67 06/23/17 19:47 98.0 71 18 157/86 (109) 97 Manual Cuff/Auscultation -: 06/24/17 1000 06/24/17 0530 Physical Exam General Appearance: Well Developed Neck Neck Exam: Neck Supple Cardiology CV Exam: Regular Gastrointestinal/Abdomen GI Exam: Non-Tender Extremeties Extremities Exam: No Edema Neurologic Neuro Exam: Alert Assessment/Plan Problem List: (1) Acute kidney injury ICD Codes: N17.9 - Acute kidney failure, unspecified Status: Acute Plan: She has ARFlkely medication induced Taxol induced? Ultrasound showed echogenic kidney K5.3 Kayexalate given Start sodium bicarbonate UA not indicating UTI She is on IVF currently, continue for now Avoid nephrotoxic agents Repeat labs in AM follow with Dr. Cabrera (2) Cellulitis ICD Codes: L03.90 - Cellulitis, unspecified Status: Acute Plan: Antibiotic per hospitalist if indicated She is afebrile, the site appears to be resolving Problem Qualifiers (1) Cellulitis: Qualified Codes: L03.114 - Cellulitis of left upper limb Jah Tesfaye MD Jun 24, 2017 16:20
[2017-06-24] MEDS: GABAPENTIN 300 MG CAP PO SCH (21:36)
[2017-06-24] MEDS: SODIUM BICARBONATE 650 MG TAB PO SCH (21:37)
[2017-06-24] MEDS: ATORVASTATIN 10 MG TAB PO SCH (21:37)
[2017-06-25] VITALS (12 sets, daily range): BP systolic 150–193; BP diastolic 78–100; PULSE 65–82; RESP 16–20; TEMP 97.4–98.5; O2SAT 95–97
[2017-06-25] MEDS: SODIUM CHLOR 0.9% 1000 ML INJ 1,000 ML IV SCH ×2 (01:00→04:20)
[2017-06-25] MEDS ORDERED: SODIUM CHLORIDE 0.9% FLUSH 10 ML FLUSH IV FLUSH PRN (04:00)
[2017-06-25] MEDS: SODIUM CHLORIDE 0.9% FLUSH 10 ML FLUSH IV FLUSH PRN (04:25)
[2017-06-25] MEDS: LEVOTHYROXINE SODIUM 50 MCG TAB PO SCH (06:14)
[2017-06-25 06:36] LABS: BICARBONATE 16.6 MEQ/L (21.0-32.0); MAGNESIUM 1.7 MG/DL (1.5-2.5); POTASSIUM 4.9 MEQ/L (3.5-5.1)
[2017-06-25 06:43] LABS: AUTOMATED NEUTROPHIL # 3.2 TH/MM3 (1.8-7.7); BASOPHIL % 0.5 % (0.0-2.0); EOSINOPHIL # 0.3 TH/MM3 (0-0.4); EOSINOPHIL % 4.3 % (0.0-4.0); HEMATOCRIT 26.1 % (35.0-46.0); HEMO FLAGS DIFF FINAL; LYMPH % 40.7 % (9.0-44.0); LYMPHOCYTE # 2.9 TH/MM3 (1.0-4.8); MEAN CELL VOLUME 97.1 FL (80.0-100.0); MEAN CORPUSCULAR HEMOGLOBIN 33.1 PG (27.0-34.0); MONO % 9.2 % (0.0-8.0); NEUT % 45.3 % (16.0-70.0); PLATELET COUNT 151 TH/MM3 (150-450); RED BLOOD COUNT 2.69 MIL/MM3 (4.00-5.30); RED CELL DISTRIBUTION WIDTH 14.3 % (11.6-17.2)
[2017-06-25] MEDS ORDERED: SODIUM CHLOR 0.45% 1000 ML INJ 1,000 ML IV SCH (09:00)
[2017-06-25] MEDS: SODIUM CHLORIDE 0.9% FLUSH 10 ML FLUSH IV FLUSH SCH ×2 (09:00→20:21)
--- NOTE | 2017-06-25 09:04 | RADRPT ---
EXAM DATE/TIME: 06/25/2017 08:43 [place] COMPARISON: CHEST SINGLE AP, June 23, 2017, 14:33. INDICATIONS : Shortness of breath. Follow-up effusion. MEDICAL HISTORY : Carcinoma, breast. Gastroesophageal reflux disease. Hypertension. SURGICAL HISTORY : Tonsillectomy. Appendectomy. Rip hip replacement. Back surgery. Infusaport. ENCOUNTER: Subsequent ACUITY: 4 - 6 days PAIN SCORE: 0/10 LOCATION: Bilateral chest FINDINGS: Course interstitial changes persist in both lungs that has more the appearance of fibrosis within janene lure. The cardiac size is appropriate. There is no pleural effusion. There is consolidation. [id number] is pinched beneath the right clavicle. CONCLUSION: Stable chest. Simon Zamora MD FACR on June 25, 2017 at 9:01 Board Certified Radiologist. This report was verified electronically.
[2017-06-25] MEDS: LOPERAMIDE HCL 2 MG CAP PO SCH (09:21)
[2017-06-25] MEDS: PANTOPRAZOLE SOD 20 MG DELAYED RELEASE TAB PO SCH (09:21)
[2017-06-25] MEDS: SODIUM BICARBONATE 650 MG TAB PO SCH ×2 (09:21→20:21)
[2017-06-25] MEDS: ATENOLOL 25 MG TAB PO SCH ×2 (09:22→20:21)
[2017-06-25] MEDS: cefTRIAXone INJ 1,000 MG in SODIUM CHLORIDE 0.9% INJ 100 ML IV SCH (09:22)
--- NOTE | 2017-06-25 09:41 | HHI.PR ---
Subjective Remarks overall better. left breast and arm redness better and swelling still present but better in lue urinating ok. Objective Vitals heart reg lung cta abd s/nt ext left arm swelling noted. no redness or drainage Vital Signs Date Time Temp Pulse Resp B/P (MAP) Pulse Ox O2 Delivery O2 Flow Rate FiO2 06/25/17 09:25 97.4 82 18 193/93 (126) 97 06/25/17 04:21 98.1 74 16 175/95 (121) 97 06/25/17 04:12 65 06/25/17 00:06 97.9 66 20 150/78 (102) 97 06/25/17 00:02 69 06/24/17 21:05 97.6 70 22 168/98 (121) 96 06/24/17 20:20 75 06/24/17 16:26 98.0 66 18 162/69 (100) 96 06/24/17 11:56 97.6 63 18 156/72 (100) 98 06/25/17 06/25/17 06/26/17 15:00 23:00 07:00 Output Total 200 ml Balance -200 ml Output Urine Total 200 ml Result Diagram: 06/25/17 0425 06/25/17 0425 Imaging Last Impressions Upper Extremity Ultrasound 06/22/17 0000 Signed Impressions: Service Date/Time: Thursday, June 22, 2017 14:14 - CONCLUSION: Negative for DVT. Simon Zamora MD FACR Renal Ultrasound 06/22/17 0000 Signed Impressions: Service Date/Time: Thursday, June 22, 2017 15:05 - CONCLUSION: 1. Echogenic kidneys consistent with medical renal disease. 2. No obstructive uropathy. Jordan Grey MD Chest X-Ray 06/22/17 0000 Signed Impressions: Service Date/Time: Thursday, June 22, 2017 16:45 - CONCLUSION: Negative for an acute process. Simon Zamora MD FACR Objective Remarks G A/P Problem List: (1) Acute kidney injury ICD Codes: N17.9 - Acute kidney failure, unspecified Status: Acute Plan: 1. roni. slightly improved. probably atn from sepsis. don't think the herceptin in the culprit she gives us no other otc medication history no evidence for interstitial nephritis I see alot of bm's documented in [employer].. I called RN and pt told her she has "chronic diarrhea" 2. left arm/breast cellulitis. overall better. 3. elevated htn...pt is off her home bp med 4. breast ca renal following. ivf changes noted holding arb cont iv abx for now and convert at d/c when renal function better. 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 ICD Codes: G62.0 - Drug-induced polyneuropathy; T45.1X5A - Adverse effect of antineoplastic and immunosuppressive drugs, initial encounter Status: Chronic Plan: Neuropathy secondary to chemotherapy Continue patient's Gabapentin (4) Hypothyroidism ICD Codes: E03.9 - Hypothyroidism, unspecified Status: Chronic Plan: Hypothyroidism continue patient's home Synthroid 50mcg daily (5) Hyperlipidemia ICD Codes: E78.5 - Hyperlipidemia, unspecified Status: Chronic Plan: Hyperlipidemia continue patient's home statin (6) GERD (gastroesophageal reflux disease) ICD Codes: K21.9 - Gastro-esophageal reflux disease without esophagitis Status: Chronic Plan: GERD continue patient's home Protonix (7) HTN (hypertension) ICD Codes: I10 - Essential (primary) hypertension Status: Chronic Plan: Hypertension Hold patient's losartan secondary to acute kidney injury Continue home atenolol 25 mg PO BID Monitor blood pressure trend (8) Hyperkalemia ICD Codes: E87.5 - Hyperkalemia Status: Acute Plan: potassium (06/24) 5.3 Kayexalate given Problem Qualifiers (1) Cellulitis: Qualified Codes: L03.114 - Cellulitis of left upper limb Bharath Barrios MD Jun 25, 2017 09:41
--- NOTE | 2017-06-25 11:01 | HHI.NPPN ---
Subjective Renal Failure: Acute Interval History She looks better. Renal function is improving. (Lizeth Woods) Review of Systems General Constitutional: Fatigue (Lizeth Woods) Cardiovascular Cardiac: Edema Cardiac Remarks left arm (Lizeth Woods) Objective Data Data 06/25/17 06/26/17 19:00 07:00 Output Total 200 ml Balance -200 ml Output Urine Total 200 ml Vital Signs Date Time Temp Pulse Resp B/P (MAP) Pulse Ox O2 Delivery O2 Flow Rate FiO2 06/25/17 10:55 97.8 71 20 178/85 (116) 97 06/25/17 09:25 97.4 82 18 193/93 (126) 97 06/25/17 04:21 98.1 74 16 175/95 (121) 97 06/25/17 04:12 65 06/25/17 00:06 97.9 66 20 150/78 (102) 97 06/25/17 00:02 69 06/24/17 21:05 97.6 70 22 168/98 (121) 96 06/24/17 20:20 75 06/24/17 16:26 98.0 66 18 162/69 (100) 96 06/24/17 11:56 97.6 63 18 156/72 (100) 98 (Lizeth Woods) -: 06/25/17 0425 06/25/17 0425 Imaging Last 72 hours Impressions Chest X-Ray 06/25/17 0000 Signed Impressions: Service Date/Time: Sunday, June 25, 2017 08:43 - CONCLUSION: Stable chest. Simon Zamora MD FACR Chest X-Ray 06/23/17 0000 Signed Impressions: Service Date/Time: Friday, June 23, 2017 14:33 - CONCLUSION: 1. Mild left basilar atelectasis/scarring with possible small left-sided effusion. 2. No confluent infiltrate. 3. Apparent pinch off of the catheter in the right subclavian. Catheter tubing remains intact, however. 4. Degenerative changes in the right shoulder with plain film findings concerning for chronic rotator cuff injury. Leonardo Alarcon MD (Lizeth Woods) Physical Exam General Appearance: Well Developed, No Acute Distress, Comfortable (Lizeth Woods) Eyes Eye Exam: Pupils Equal (Lizeth Woods) Neck Neck Exam: Neck Supple (Lizeth Woods) Pulmonary Resp Exam: Clear Bilaterally, Breath Sounds Equal (Lizeth WoodsP) Cardiology CV Exam: Regular (Lizeth Woods) Gastrointestinal/Abdomen GI Exam: Non-Tender (Lizeth Woods) Musculoskeletal MS Exam: Joints Intact, Normal Gait, Normal Tone (Lizeth Woods) Integumentary Skin Exam: Clear, Warm, Dry (Lizeth Woods) Extremeties Extremities Exam: No Edema (Lizeth Woods) Neurologic Neuro Exam: Alert, Awake, Oriented, Speech Clear, Moving All Extremities (Lizeth Woods) Psychiatric Psych Exam: Appropriate Responses (Lizeth Woods) Assessment/Plan Discussed Condition With: Patient Assessment Summary: GUIDO/Acute Renal Failure Electrolyte Assessment: Hypernatremia Problem List: (1) Acute kidney injury ICD Codes: N17.9 - Acute kidney failure, unspecified Status: Acute Plan: Resolving renal failure, etiology of which has not been determined She has normal renal function at baseline. May have been hypotensive prior to admission vs. infection; also given NSAIDs on admission Will stop 1/2 NS; advised to have adequate water intake On oral bicarbonate for acidosis She is non oliguric renal US showed echogenic kidney UA not indicating UTI Avoid nephrotoxic agents (2) Cellulitis ICD Codes: L03.90 - Cellulitis, unspecified Status: Acute Plan: She is on rocephin, management per hospitalist (Lizeth Woods) Plan patient was seen and examined. Agree with above assessment and plan. Renal function is slightly better. (Jose Cabrera MD) Problem Qualifiers (1) Cellulitis: Qualified Codes: L03.114 - Cellulitis of left upper limb Lizeth Woods Jun 25, 2017 11:01 Jose Cabrera MD Jun 26, 2017 11:15
[2017-06-25] MEDS: cloNIDine HCL 0.1 MG TAB PO PRN (17:45)
[2017-06-25] MEDS: ATORVASTATIN 10 MG TAB PO SCH (20:21)
[2017-06-25] MEDS: GABAPENTIN 300 MG CAP PO SCH (20:21)
[2017-06-26] VITALS (9 sets, daily range): BP systolic 153–191; BP diastolic 79–101; PULSE 63–77; RESP 16–18; TEMP 97.7–98.2; O2SAT 93–98
[2017-06-26] MEDS: SODIUM CHLORIDE 0.9% FLUSH 10 ML FLUSH IV FLUSH PRN ×2 (03:32)
[2017-06-26] MEDS: cloNIDine HCL 0.1 MG TAB PO PRN (03:45)
[2017-06-26 05:28] LABS: BICARBONATE 17.6 MEQ/L (21.0-32.0); POTASSIUM 4.8 MEQ/L (3.5-5.1)
[2017-06-26] MEDS: LEVOTHYROXINE SODIUM 50 MCG TAB PO SCH (05:41)
--- NOTE | 2017-06-26 08:33 | HHI.PR ---
Subjective Remarks feeling well. Objective Vitals heart reg lung cta abd s/nt ext left arm/hand mild swelling. no redness Vital Signs Date Time Temp Pulse Resp B/P (MAP) Pulse Ox O2 Delivery O2 Flow Rate FiO2 06/26/17 04:08 63 06/26/17 03:38 97.9 71 16 191/90 (123) 94 06/26/17 03:35 190/101 (130) 06/26/17 00:51 98.1 69 16 161/79 (106) 94 06/26/17 00:09 66 06/25/17 20:14 98.3 68 18 165/81 (109) 96 06/25/17 20:08 65 06/25/17 17:45 187/100 (129) 06/25/17 15:44 98.5 76 18 173/84 (113) 95 06/25/17 12:07 158/96 (116) 06/25/17 10:55 97.8 71 20 178/85 (116) 97 06/25/17 09:25 97.4 82 18 193/93 (126) 97 Result Diagram: 06/25/17 0425 06/26/17 0335 Imaging Last Impressions Upper Extremity Ultrasound 06/22/17 0000 Signed Impressions: Service Date/Time: Thursday, June 22, 2017 14:14 - CONCLUSION: Negative for DVT. Simon Zamora MD FACR Renal Ultrasound 06/22/17 0000 Signed Impressions: Service Date/Time: Thursday, June 22, 2017 15:05 - CONCLUSION: 1. Echogenic kidneys consistent with medical renal disease. 2. No obstructive uropathy. Jordan Grey MD Chest X-Ray 06/22/17 0000 Signed Impressions: Service Date/Time: Thursday, June 22, 2017 16:45 - CONCLUSION: Negative for an acute process. Simon Zamora MD FACR Objective Remarks G A/P Problem List: (1) Acute kidney injury ICD Codes: N17.9 - Acute kidney failure, unspecified Status: Acute Plan: 1. roni. improving probably atn from sepsis. don't think the herceptin in the culprit she gives us no other otc medication history no evidence for interstitial nephritis I see alot of bm's documented in [employer].. I called RN and pt told her she has "chronic diarrhea" 2. left arm/breast cellulitis. overall better. 3. elevated htn...pt is off her home bp med 4. breast ca renal following. ivf per renal holding arb. will substitute ccb for now given severe htn iv to po abx today recheck bmp in AM ...if still trending down then probably dc home tomorrow. 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 ICD Codes: G62.0 - Drug-induced polyneuropathy; T45.1X5A - Adverse effect of antineoplastic and immunosuppressive drugs, initial encounter Status: Chronic Plan: Neuropathy secondary to chemotherapy Continue patient's Gabapentin (4) Hypothyroidism ICD Codes: E03.9 - Hypothyroidism, unspecified Status: Chronic Plan: Hypothyroidism continue patient's home Synthroid 50mcg daily (5) Hyperlipidemia ICD Codes: E78.5 - Hyperlipidemia, unspecified Status: Chronic Plan: Hyperlipidemia continue patient's home statin (6) GERD (gastroesophageal reflux disease) ICD Codes: K21.9 - Gastro-esophageal reflux disease without esophagitis Status: Chronic Plan: GERD continue patient's home Protonix (7) HTN (hypertension) ICD Codes: I10 - Essential (primary) hypertension Status: Chronic Plan: Hypertension Hold patient's losartan secondary to acute kidney injury Continue home atenolol 25 mg PO BID Monitor blood pressure trend (8) Hyperkalemia ICD Codes: E87.5 - Hyperkalemia Status: Acute Plan: potassium (06/24) 5.3 Kayexalate given Problem Qualifiers (1) Cellulitis: Qualified Codes: L03.114 - Cellulitis of left upper limb Bharath Barrios MD Jun 26, 2017 08:33
[2017-06-26] MEDS: cefTRIAXone INJ 1,000 MG in SODIUM CHLORIDE 0.9% INJ 100 ML IV SCH (09:03)
[2017-06-26] MEDS: SODIUM CHLORIDE 0.9% FLUSH 10 ML FLUSH IV FLUSH SCH ×2 (09:04→20:18)
[2017-06-26] MEDS: SODIUM BICARBONATE 650 MG TAB PO SCH (09:04)
[2017-06-26] MEDS: ATENOLOL 25 MG TAB PO SCH ×2 (09:04→20:18)
[2017-06-26] MEDS: LOPERAMIDE HCL 2 MG CAP PO SCH (09:04)
[2017-06-26] MEDS: PANTOPRAZOLE SOD 20 MG DELAYED RELEASE TAB PO SCH (09:05)
[2017-06-26] MEDS: NIFEdipine 30 MG SUSTAINED RELEASE TAB PO SCH (09:13)
--- NOTE | 2017-06-26 11:13 | HHI.NPPN ---
Subjective Renal Failure: Acute Interval History Ambulatory in room. Looks well. Renal function is better. (Lizeth Woods) Review of Systems General Constitutional: Fatigue (Lizeth Woods) Cardiovascular Cardiac: Edema Cardiac Remarks left arm (Lizeth Woods) Objective Data Data Vital Signs Date Time Temp Pulse Resp B/P (MAP) Pulse Ox O2 Delivery O2 Flow Rate FiO2 06/26/17 08:59 98.2 77 18 153/91 (111) 93 06/26/17 04:08 63 06/26/17 03:38 97.9 71 16 191/90 (123) 94 06/26/17 03:35 190/101 (130) 06/26/17 00:51 98.1 69 16 161/79 (106) 94 06/26/17 00:09 66 06/25/17 20:14 98.3 68 18 165/81 (109) 96 06/25/17 20:08 65 06/25/17 17:45 187/100 (129) 06/25/17 15:44 98.5 76 18 173/84 (113) 95 06/25/17 12:07 158/96 (116) (Lizeth Woods) -: 06/25/17 0425 06/26/17 0335 Imaging Last 72 hours Impressions Chest X-Ray 06/25/17 0000 Signed Impressions: Service Date/Time: Sunday, June 25, 2017 08:43 - CONCLUSION: Stable chest. Simon Zamora MD FACR (Lizeth Woods) Physical Exam General Appearance: Well Developed, No Acute Distress, Comfortable (Lizeth Woods) Eyes Eye Exam: Pupils Equal (Lizeth Woods) Neck Neck Exam: Neck Supple (Lizeth Woods) Pulmonary Resp Exam: Clear Bilaterally, Breath Sounds Equal (Lizeth Woods) Cardiology CV Exam: Regular (Lizeth Woods) Gastrointestinal/Abdomen GI Exam: Non-Tender (Lizeth Woods) Musculoskeletal MS Exam: Joints Intact, Normal Gait, Normal Tone (Lizeth Woods) Integumentary Skin Exam: Clear, Warm, Dry (Lizeth Woods) Extremeties Extremities Exam: No Edema (Lizeth Woods) Neurologic Neuro Exam: Alert, Awake, Oriented, Speech Clear, Moving All Extremities (Lizeth Woods) Psychiatric Psych Exam: Appropriate Responses (Lizeth Woods) Assessment/Plan Discussed Condition With: Patient Assessment Summary: GUIDO/Acute Renal Failure Electrolyte Assessment: Hypernatremia Problem List: (1) Acute kidney injury ICD Codes: N17.9 - Acute kidney failure, unspecified Status: Acute Plan: Resolving renal failure, etiology of which has not been determined She has normal renal function at baseline. May have been hypotensive prior to admission vs. infection; also given NSAIDs on admission Off IVF Renal function is improving Hypernatremia, mild, stop oral bicarbonate and monitor Avoid nephrotoxic agents If improvement again tomorrow, she can be discharged (2) Cellulitis ICD Codes: L03.90 - Cellulitis, unspecified Status: Acute Plan: She is on rocephin, management per hospitalist (Lizeth Woods) Plan patient was seen and examined. Renal function has improved. She can be discharged from renal standpoint. (Jose Cabrera MD) Problem Qualifiers (1) Cellulitis: Qualified Codes: L03.114 - Cellulitis of left upper limb Lizeth Woods Jun 26, 2017 11:13 Jose Cabrera MD Jun 27, 2017 10:27
[2017-06-26] MEDS: CEPHALEXIN MONOHYDRATE 500 MG CAP PO SCH ×2 (15:28→22:37)
[2017-06-26] MEDS: GABAPENTIN 300 MG CAP PO SCH (20:17)
[2017-06-26] MEDS: ATORVASTATIN 10 MG TAB PO SCH (20:17)
[2017-06-27 00:04] VITALS: PULSE 61
[2017-06-27 00:55] VITALS: BP 147/78; PULSE 71; RESP 18; TEMP 98.1; O2SAT 97
[2017-06-27 03:56] VITALS: BP 161/73; PULSE 62; RESP 18; TEMP 98.5; O2SAT 98
[2017-06-27 04:08] VITALS: PULSE 69
[2017-06-27] MEDS: SODIUM CHLORIDE 0.9% FLUSH 10 ML FLUSH IV FLUSH PRN ×2 (04:08→04:09)
[2017-06-27 05:31] LABS: BICARBONATE 20.8 MEQ/L (21.0-32.0); POTASSIUM 4.2 MEQ/L (3.5-5.1)
[2017-06-27] MEDS: LEVOTHYROXINE SODIUM 50 MCG TAB PO SCH (05:53)
[2017-06-27] MEDS: CEPHALEXIN MONOHYDRATE 500 MG CAP PO SCH (05:53)
[2017-06-27 08:13] VITALS: PULSE 82
[2017-06-27 08:15] VITALS: BP 156/72; PULSE 64; RESP 16; TEMP 98.1; O2SAT 97
--- NOTE | 2017-06-27 08:37 | HHI.DCPOC ---
Discharge Care Plan Diagnosis: (1) Acute kidney injury (2) Cellulitis Goals to Promote Your Health * To prevent worsening of your condition and complications * To maintain your health at the optimal level Directions to Meet Your Goals Take your medications as prescribed Follow your dietary instruction Follow activity as directed Keep your appointments as scheduled Take your immunizations and boosters as scheduled If your symptoms worsen call your PCP, if no PCP go to Urgent Care Center or Emergency Room Smoking is Dangerous to Your Health. Avoid second hand smoke Call the 24-hour hour crisis hotline for domestic abuse at Bharath Barrios MD Jun 27, 2017 08:37
[2017-06-27] MEDS ORDERED: NIFE30TA8 PO (08:42)
[2017-06-27] MEDS ORDERED: CEPH500C PO (08:42)
--- NOTE | 2017-06-27 08:43 | HHI.DS ---
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 ICD Codes: G62.0 - Drug-induced polyneuropathy; T45.1X5A - Adverse effect of antineoplastic and immunosuppressive drugs, initial encounter Status: Chronic (4) Hypothyroidism ICD Codes: E03.9 - Hypothyroidism, unspecified Status: Chronic (5) Hyperlipidemia ICD Codes: E78.5 - Hyperlipidemia, unspecified Status: Chronic (6) GERD (gastroesophageal reflux disease) ICD Codes: K21.9 - Gastro-esophageal reflux disease without esophagitis Status: Chronic (7) HTN (hypertension) ICD Codes: I10 - Essential (primary) hypertension Status: Chronic (8) Hyperkalemia ICD Codes: E87.5 - Hyperkalemia Status: Acute Brief History This is an 86-year-old female patient with past medical history which includes left breast cancer currently undergoing chemotherapy with Dr. Majano, diabetes mellitus, pulmonary hypertension, chronic kidney disease, diverticulosis, GERD, hyperlipidemia, hyperthyroidism, lumbar radiculopathy, osteoporosis and peripheral neuropathy secondary to chemotherapy. On Sunday she developed a fever, Tmax 103.2 F, noticed erythema to left breast that extended down her left arm with edema. Patient endorses minimal oral intake and Sun. Yesterday she saw her PCP who kayleigh labs and referred her to ER for renal failure. Her creatinine was 3.03 yesterday, and increased to 4.04 today. She has been making a good amount of urine. Patient was seen by her oncologist Dr. Majano for complained of left arm edema lab values were checked and patient was found to have elevated renal function. Patient evaluated with daughter and at bedside. Patient reports she is feeling better and the erythema to left arm and breast area has improved greatly after she received Rocephin at Dr. Majano's office. Patient denies chest pain or shortness of breath. CBC/BMP: 06/25/17 0425 06/27/17 0410 Significant Findings Laboratory Tests Test 06/24/17 10:00 06/25/17 04:25 06/26/17 03:35 06/27/17 04:10 Red Blood Count 3.28 MIL/MM3 (4.00-5.30) 2.69 MIL/MM3 (4.00-5.30) Hemoglobin 10.4 GM/DL (11.6-15.3) 8.9 GM/DL (11.6-15.3) Hematocrit 31.8 % (35.0-46.0) 26.1 % (35.0-46.0) Monocytes (%) (Auto) 9.2 % (0.0-8.0) Eosinophils (%) (Auto) 4.3 % (0.0-4.0) Blood Urea Nitrogen 62 MG/DL (7-18) 62 MG/DL (7-18) 53 MG/DL (7-18) Creatinine 3.55 MG/DL (0.50-1.00) 2.87 MG/DL (0.50-1.00) 2.44 MG/DL (0.50-1.00) Calcium Level 7.9 MG/DL (8.5-10.1) 8.3 MG/DL (8.5-10.1) Sodium Level 147 MEQ/L (136-145) 146 MEQ/L (136-145) Chloride Level 119 MEQ/L (98-107) 119 MEQ/L (98-107) 114 MEQ/L (98-107) Carbon Dioxide Level 16.6 MEQ/L (21.0-32.0) 17.6 MEQ/L (21.0-32.0) 20.8 MEQ/L (21.0-32.0) Estimat Glomerular Filtration Rate 12 ML/MIN (>89) 16 ML/MIN (>89) 19 ML/MIN (>89) Random Glucose 125 MG/DL (74-106) 118 MG/DL (74-106) PE at Discharge G Hospital Course (1) Acute kidney injury 1. roni. improving probably atn from sepsis. don't think the herceptin in the culprit she gives us no other otc medication history no evidence for interstitial nephritis I see alot of bm's documented in [employer].. I called RN and pt told her she has "chronic diarrhea" 2. left arm/breast cellulitis. overall better. 3. elevated htn...pt is off her home bp med 4. breast ca d/c home. f/u for cr recheck with pcp or dr majano. cont ccb and change back to arb if necessary per pcp. (2) Cellulitis I Left Upper extremity cellulitis US negative for DVT Patient has received Rocephin outpatient with improvement converted to keflex. kenny for swelling f/u for recheck in 2 days. Pt Condition on Discharge: Stable Discharge Disposition: Discharge Home Discharge Instructions DIET: Follow Instructions for: As Tolerated, No Restrictions Activities you can perform: Regular-No Restrictions Follow up Referrals: Oncology - [address] majano PCP Follow-up - [address] neli lang New Medications: Cephalexin (Cephalexin) 500 Mg Cap 500 MG PO Q8HR for Infection for 7 Days, CAP Nifedipine ER 24 HR (Nifedipine ER 24 HR) 30 Mg Tab 30 MG PO DAILY for Blood Pressure Management, #30 TAB Continued Medications: Ascorbic Acid (Ascorbic Acid) 500 Mg Tab 600 MG PO, TAB Atenolol (Atenolol) 25 Mg Tab 25 MG PO BID for Blood Pressure Management, #60 TAB 0 Refills Calcium Carbonate-Cholecalciferol (Calcium 600 with Vitamin D) 600-400 mg-Unit Tab 1 TAB PO BID for Calcium Supplement, TAB 0 Refills Gabapentin (Gabapentin) 300 Mg Cap 300 MG PO HS, #30 CAP 0 Refills Levothyroxine (Levothyroxine) 50 Mcg Tab 50 MCG PO DAILY for Thyroid, #30 TAB 0 Refills Multiple Vitamin (Multiple Vitamin) 1 Tab 1 TAB PO DAILY for Nutritional Supplement, TAB 0 Refills Omeprazole (Omeprazole) 20 Mg Tab 20 MG PO DAILY, #30 TAB 0 Refills Rosuvastatin (Rosuvastatin) 5 Mg Tab 5 MG PO HS for Cholesterol Management, #30 TAB 0 Refills Trastuzumab (Herceptin) 150 Mg Vial Discontinued Medications: Losartan (Losartan) 100 Mg Tab 200 MG PO DAILY for Blood Pressure Management, #30 TAB 0 Refills Bharath Barrios MD Jun 27, 2017 08:43
[2017-06-27] MEDS: ATENOLOL 25 MG TAB PO SCH (08:46)
[2017-06-27] MEDS: PANTOPRAZOLE SOD 20 MG DELAYED RELEASE TAB PO SCH (08:46)
[2017-06-27] MEDS: NIFEdipine 30 MG SUSTAINED RELEASE TAB PO SCH (08:46)
[2017-06-27] MEDS: LOPERAMIDE HCL 2 MG CAP PO SCH (08:46)
[2017-06-27] MEDS: SODIUM CHLORIDE 0.9% FLUSH 10 ML FLUSH IV FLUSH SCH (08:47)
== END 2017-06-27 11:58 | disposition home or self-care (01) | DRG 683 ==
LOC: NEPE 13:24 → NEDA 15:14 → HCIN 17:01
PROVIDERS: ADMIT Hospitalist; ATTEND Hospitalist
DX: N17.0 Acute kidney failure with tubular necrosis (principal); E87.0 Hyperosmolality and hypernatremia; E11.22 Type 2 diabetes mellitus with diabetic chronic kidney disease; I27.20 Pulmonary hypertension, unspecified; L03.114 Cellulitis of left upper limb; C50.912 Malignant neoplasm of unspecified site of left female breast; I12.9 Hypertensive chronic kidney disease with stage 1 through stage 4 chronic kidney disease, or unspecified chronic kidney disease; E03.9 Hypothyroidism, unspecified; E78.5 Hyperlipidemia, unspecified; G62.0 Drug-induced polyneuropathy; N18.9 Chronic kidney disease, unspecified; T45.1X5A Adverse effect of antineoplastic and immunosuppressive drugs, initial encounter; K21.9 Gastro-esophageal reflux disease without esophagitis; R19.7 Diarrhea, unspecified; K57.90 Diverticulosis of intestine, part unspecified, without perforation or abscess without bleeding; M81.0 Age-related osteoporosis without current pathological fracture; Z90.710 Acquired absence of both cervix and uterus; Z96.641 Presence of right artificial hip joint
CPT/HCPCS: 36415; 71010; 71020; 76775; 80048; 80053; 81001; 82550; 83605; 83735; 85025; 85027; 85610; 85730; 86300; 87040; 87205; 93971; 96360; 96365; 99214; G0463; J0696; J1642; J3480; J7030; J7040